=== PATIENT | female | born 1995 | race American Indian/Alaskan Native ===

== ENCOUNTER 2017-07-29 08:07 | Outpatient (CLI) | payer MEDICAID ==
[2017-07-29 09:00] LABS: Bacteria,Urine 3+ /HPF (Negative); Bilirubin,Urine NEG (Negative); Blood,Urine NEG (Negative); Ketones,Urine TR mg/dL (Negative); Leukocyte Esterase,Urine NEG (Negative); Mucus,Urine FEW /HPF; Nitrite,Urine NEG (Negative); Protein,Urine <15 mg/dL mg/dL (Negative); Urobilinogen,Urine < 2.0 mg/dL (<2.0)
[2017-07-29 09:22] VITALS: BP 108/67
== END 2017-07-29 09:40 | disposition home or self-care (01) ==
LOC: TRG 08:07
PROVIDERS: ATTEND Obstetrics & Gynecology
DX: O47.1 False labor at or after 37 completed weeks of gestation (principal); Z3A.37 37 weeks gestation of pregnancy
CPT/HCPCS: 59025; 81001

== ENCOUNTER 2017-08-26 20:05 | Inpatient (IN) | payer MEDICAID ==
[2017-08-26] MEDS ORDERED: LACTATED RINGERS 1,000 ML ONE (21:06)
[2017-08-26] MEDS ORDERED: AMBIEN PO PRN (21:35)
[2017-08-26 21:43] LABS: Hematocrit 33.7 % (30.3-42.9); Mean Corpuscular HGB Conc 33 % (30-34); Mean Corpuscular Hemoglobin 29 pg (28-32); Mean Corpuscular Volume 88 fl (79-97); Platelet Count 253 K/mm3 (140-440); Red Blood Count 3.82 M/mm3 (3.65-5.03); Red Cell Distribution Width 14.3 % (13.2-15.2); White Blood Count 16.5 K/mm3 (4.5-11.0)
[2017-08-26] MEDS: CYTOTEC VG SCH (22:03)
[2017-08-26] MEDS: LACTATED RINGERS 1,000 ML IV SCH (23:44)
[2017-08-27] MEDS: CYTOTEC VG SCH (03:03)
[2017-08-27] MEDS: LACTATED RINGERS 1,000 ML IV SCH (05:31)
[2017-08-27] MEDS: STADOL IV PRN ×2 (06:21→12:49)
[2017-08-27] MEDS ORDERED: ePHEDrine SULFATE IV PRN (07:30)
[2017-08-27] MEDS ORDERED: NARCAN 0.4 MG/1 ML IV PRN (08:00)
[2017-08-27] MEDS ORDERED: LACTATED RINGERS 1,000 ML IV SCH (08:00)
[2017-08-27] MEDS ORDERED: MINERAL OIL PO PRN (08:00)
[2017-08-27] MEDS ORDERED: PITOCin/NS 30 UNIT/500ML 30 UNITS/500 ML BAG IV SCH (08:00)
[2017-08-27] MEDS ORDERED: XYLOCAINE 2% INFILTRATI NR (08:00)
[2017-08-27] MEDS ORDERED: BRETHINE SUB-Q PRN (08:00)
[2017-08-27] MEDS ORDERED: ZOFRAN IV PRN ×2 (08:00→23:25)
[2017-08-27] MEDS ORDERED: BRETHINE IVP PRN (08:00)
--- NOTE | 2017-08-27 09:15 | History and Physical Report ---
History of Present Illness Date of examination: 08/27/17 Date of admission: 08/26/17 20:05 Chief complaint: induction of labor History of present illness: Pt is a 22 year old -[place] female HELADIO 08/18/17 at 41w2d who presented last night for induction of labor secondary to post dates. She has received 2 doses of cytotec since admission. She denies vaginal bleeding and leakage of fluid. She has had care at [facility] since 7 wks complicate by right breast lump s/p breast specialist referral and request for 6 month follow up. She is GBS negative. Past History Past Medical History: no pertinent history Past Surgical History: no surgical history Family/Genetic History: diabetes, hypertension Social history: no significant social history - Obstetrical History Expected Date of Delivery: 08/18/17 Actual Gestation: 41 Week(s) 2 Day(s) : 3 Para: 0 Hx # Term Pregnancies: 0 Number of Pregnancies: 0 Spontaneous Abortions: 2 Induced : 0 Number of Living Children: 0 Medications and Allergies Allergies Allergy/AdvReac Type Severity Reaction Status Date / Time No Known Allergies Allergy Verified 09/24/13 04:23 Home Medications Medication Instructions Recorded Confirmed Last Taken Type Docusate Sodium [Colace] 100 mg PO BID #20 capsule 02/08/14 08/27/17 1 Day Ago Rx ~07/28/17 1 Vit,Calc76/Iron/Folic 1 each PO Q24HR 07/29/17 08/27/17 1 Day Ago History [Pnv 29-1 Tablet] ~07/28/17 Active Meds: Active Medications Butorphanol Tartrate (Stadol) 2 mg IV Q2H PRN PRN Reason: Labor Pain Last Admin: 08/27/17 06:21 Dose: 2 mg Ephedrine Sulfate (Ephedrine Sulfate) 10 mg IV Q2M PRN PRN Reason: Hypotension Fentanyl (Sublimaze) 100 mcg IV Q2H PRN PRN Reason: Labor Pain Lactated Ringer's (Lactated Ringers) 1,000 mls @ 125 mls/hr IV DIRECT FAROOQ Oxytocin/Sodium Chloride (Pitocin/Ns 20 Unit/1000ml Drip) 20 units in 1,000 mls @ 125 mls/hr IV DIRECT FAROOQ Oxytocin/Sodium Chloride (Pitocin/Ns 30 Unit/500ml) 30 units in 500 mls @ 4 mls /hr IV TITR FAROOQ PRN Reason: Protocol Lidocaine (Xylocaine 2%) 20 ml INFILTRATI ONCE NR Stop: 08/27/17 15:00 Mineral Oil (Mineral Oil) 30 ml PO QHS PRN PRN Reason: Constipation Misoprostol (Cytotec) 25 mcg VG Q4H FAROOQ Last Admin: 08/27/17 03:03 Dose: 25 mcg Naloxone HCl (Narcan 0.4 Mg/1 Ml) 0.1 mg IV Q2MIN PRN PRN Reason: Res Rate </= 8 or 02 SAT < 92% Ondansetron HCl (Zofran) 4 mg IV Q8H PRN PRN Reason: Nausea And Vomiting Terbutaline Sulfate (Brethine) 0.25 mg SUB-Q ONCE PRN PRN Reason: Hyperstimulation/Hypertonicity Stop: 08/28/17 07:59 Terbutaline Sulfate (Brethine) 0.25 mg IVP ONCE PRN PRN Reason: Hyperstimulation/Hypertonicity Stop: 08/28/17 10:00 Zolpidem Tartrate (Ambien) 10 mg PO QHS PRN PRN Reason: Insomnia Last Admin: 08/26/17 23:17 Dose: 10 mg Review of Systems All systems: negative - Vital Signs Vital signs: Vital Signs Pulse BP 89 138/78 08/26/17 20:19 08/26/17 20:19 Temp Pulse Resp BP Pulse Ox 97.7 F 76 18 131/74 100 08/27/17 07:16 08/27/17 09:08 08/27/17 07:16 08/27/17 09:08 08/27/17 09:08 - Physical Exam Breasts: Positive: deferred Cardiovascular: Regular rate Lungs: Positive: Clear to auscultation Abdomen: Positive: soft (obese, gravid ) Uterus: Positive: enlarged (gravid ) Extremities: Positive: normal - Obstetrical FHR: category 2 Uterine Contraction Monitor Mode: External Cervical Dilatation: 1 Cervical Effacement Percentage: 60 station: -3 Uterine Contraction Pattern: Irregular Uterine Tone Measurement Phase: Resting Uterine Contraction Intensity: Mild Results Result Diagrams: 08/26/17 21:00 Abnormal lab results 08/26/17 Range/Units 21:00 WBC 16.5 H (4.5-11.0) K/mm3 All other labs normal. Assessment and Plan A: IUP at 41w2d Obesity Undergoing induction of labor s/p 2 doses of cytotec P: Admit to labor and delivery. Routine intrapartum care. Closely monitor maternal and status.
[2017-08-27] MEDS: SUBLIMAZE IV PRN ×2 (11:03→15:26)
[2017-08-27] MEDS ORDERED: NARCAN 2 MG/2 ML IV PRN (17:05)
--- NOTE | 2017-08-27 17:06 | Anesthesia Consultation ---
Anesthesia Consult and Med Hx Date of service: 08/27/17 - Airway Anesthetic Teeth Evaluation: Good ROM Head & Neck: Adequate Mental/Hyoid Distance: Adequate Intubation Access Assessment: Probably Good - Pre-Operative Health Status ASA Pre-Surgery Classification: ASA2, Emergency Proposed Anesthetic Plan: Epidural, Spinal - Pulmonary Hx Asthma: No COPD: No Hx Pneumonia: No - Cardiovascular System Hx Hypertension: No - Central Nervous System Hx Seizures: No Hx Psychiatric Problems: No - Endocrine Hx Renal Disease: No Hx End Stage Renal Disease: No Hx Hypothyroidism: No Hx Hyperthyroidism: No - Hematic Hx Anemia: No Hx Sickle Cell Disease: No - Other Systems Hx Alcohol Use: No
[2017-08-27] MEDS ORDERED: fentaNYL-BUPIV 2 MCG/ML-0.125% 200 MCG/100 ML BAG EPIDURAL SCH (18:00)
[2017-08-27] MEDS: PITOCin/NS 20 UNIT/1000ML DRIP 20 UNITS/1,000 ML BAG IV SCH ×2 (20:35→22:40)
--- NOTE | 2017-08-27 21:01 | Procedure Note ---
OB Delivery Note - Delivery Date of Delivery: 08/27/17 Surgeon: JORDAN SARMIENTO Estimated blood loss: 200cc - Vaginal Delivery presentation: vertex Delivery position: OA Intrapartum events: meconium Delivery induction: oxytocin Delivery monitor: external FHT, external uterine Route of delivery: Delivery placenta: spontaneous Delivery cord: 3 umbilical vessels Episiotomy: none Delivery laceration: 2nd degree Delivery repair: vicryl Anesthesia: epidural Delivery comments: Viable male delivered over intact perineum with particulate meconium weight 7 pounds 9 ounces Apgars 8,9. Cord clamped and cut and infant handed to waiting NICU staff. Placenta delivered spontaneously and intact with 3vc. 2nd laceration repaired with 2.0 vicryl. Excellent hemostasis. Patient tolerated procedure well. - A at 1 minute: 8 at 5 minutes: 9 Infant Gender: Male
[2017-08-27] MEDS ORDERED: PHENERGAN PO PRN (23:25)
[2017-08-27] MEDS ORDERED: BENADRYL PO PRN (23:25)
[2017-08-27] MEDS ORDERED: TUCKS PAD TP PRN (23:25)
[2017-08-27] MEDS ORDERED: DULCOLAX PR PRN (23:25)
[2017-08-27] MEDS ORDERED: PHENERGAN PR PRN (23:25)
[2017-08-27] MEDS ORDERED: TYLENOL PO PRN (23:25)
[2017-08-27] MEDS ORDERED: MILK OF MAGNESIA PO PRN (23:25)
[2017-08-27] MEDS ORDERED: SODIUM CHLORIDE FLUSH SYRINGE 10 ML IV NR (23:25)
[2017-08-27] MEDS ORDERED: NORCO 5/325 PO PRN (23:25)
[2017-08-28] MEDS: COLACE PO SCH ×3 (00:02→23:00)
[2017-08-28] MEDS: MOTRIN PO SCH ×4 (00:03→18:15)
[2017-08-28] MEDS ORDERED: BOOSTRIX IM ONE (06:00)
[2017-08-28 10:50] LABS: Hematocrit 28.4 % (30.3-42.9); Hemoglobin 9.3 gm/dl (10.1-14.3)
[2017-08-28] MEDS: PRENATAL VITAMIN PO SCH (12:21)
--- NOTE | 2017-08-28 15:33 | Progress Note ---
Assessment and Plan PPD 1 s/p induction at 41 weeks with . Doing well. Plan for discharge on tomorrow Subjective - Subjective Date of service: 08/28/17 Patient reports: appetite normal, voiding normally, pain well controlled, ambulating normally : doing well Objective - Vital Signs Latest vital signs: Vital Signs Temp Pulse Resp BP BP Pulse Ox 08/28/17 08:15 98.3 F 97 H 19 112/54 08/28/17 05:08 98.3 F 90 20 106/54 99 08/27/17 22:05 102 H 131/71 99 08/27/17 22:00 106 H 99 08/27/17 21:55 106 H 99 08/27/17 21:50 98 H 98 08/27/17 21:49 95 H 113/60 08/27/17 21:45 103 H 99 08/27/17 21:40 103 H 99 08/27/17 21:35 95 H 100 08/27/17 21:34 107 H 131/69 08/27/17 21:30 104 H 100 08/27/17 21:25 104 H 99 08/27/17 21:20 114 H 129/61 99 08/27/17 21:15 108 H 100 08/27/17 21:10 118 H 97 08/27/17 21:05 119 H 99 08/27/17 21:00 120 H 100 08/27/17 20:55 106 H 100 08/27/17 20:50 105 H 118/69 99 08/27/17 20:45 107 H 99 08/27/17 20:40 101 H 99 08/27/17 20:35 131 H 99 08/27/17 20:29 141 H 135/75 08/27/17 20:13 123 H 100 08/27/17 20:08 96 H 100 08/27/17 20:03 105 H 100 08/27/17 19:58 98 H 100 08/27/17 19:53 107 H 100 08/27/17 19:48 106 H 99 08/27/17 19:43 88 100 08/27/17 19:38 89 100 08/27/17 19:33 96 H 100 08/27/17 19:28 88 100 08/27/17 19:23 100 H 100 08/27/17 19:18 80 100 08/27/17 19:15 86 130/73 11/22/17 19:13 76 100 08/27/17 19:08 91 H 100 08/27/17 19:03 90 100 08/27/17 19:01 75 123/68 08/27/17 18:58 79 100 08/27/17 18:53 77 100 08/27/17 18:48 85 100 08/27/17 18:47 76 127/70 08/27/17 18:43 81 100 08/27/17 18:38 78 100 08/27/17 18:33 89 100 08/27/17 18:31 80 130/74 08/27/17 18:28 90 100 08/27/17 18:26 98.3 F 92 H 18 132/64 100 08/27/17 18:23 73 100 08/27/17 18:18 94 H 100 08/27/17 18:15 74 132/64 08/27/17 18:13 79 100 08/27/17 18:08 85 100 08/27/17 18:03 104 H 100 08/27/17 18:01 91 H 134/63 08/27/17 17:58 75 100 08/27/17 17:53 76 100 08/27/17 17:48 99 H 100 08/27/17 17:46 111 H 131/79 08/27/17 17:43 94 H 100 08/27/17 17:38 80 100 08/27/17 17:33 85 100 08/27/17 17:32 97 H 150/72 08/27/17 17:28 80 100 08/27/17 17:23 75 100 08/27/17 17:18 80 100 08/27/17 17:14 90 151/66 08/27/17 17:13 80 100 08/27/17 17:12 73 134/60 08/27/17 17:10 75 135/66 08/27/17 17:08 95 H 139/67 100 08/27/17 17:06 74 134/68 08/27/17 17:04 80 135/67 08/27/17 17:02 93 H 140/65 08/27/17 17:01 98 H 93 08/27/17 17:00 97 H 130/62 08/27/17 16:58 101 H 137/70 08/27/17 16:57 104 H 99 08/27/17 16:56 94 H 155/66 08/27/17 16:54 106 H 143/72 08/27/17 16:52 108 H 125/69 100 08/27/17 16:50 112 H 130/67 08/27/17 16:48 92 H 117/59 08/27/17 16:47 98 H 99 08/27/17 16:46 100 H 124/62 08/27/17 16:41 114 H 148/90 08/27/17 16:39 103 H 136/76 08/27/17 16:38 104 H 100 08/27/17 16:37 98 H 125/90 78 L 08/27/17 16:33 100 H 99 Intake and Output 08/28/17 08/28/17 08/28/17 06:59 14:59 22:59 Intake Total 0 120 Output Total 1000 Balance -1000 120 Intake: Oral 0 120 Output: Urine 1000 Void 1000 Other: Total, Intake Amount 0 120 Total, Output Amount 700 # Voids Void 1 1 # Bowel Movements 0 - Exam Cardiovascular: Present: Regular rate, Normal S1, Normal S2 Lungs: Present: Clear to auscultation, Normal air movement Abdomen: Present: normal appearance, soft, normal bowel sounds Uterus: Present: normal, firm Extremities: Present: normal - Labs Labs: Abnormal lab results 08/28/17 Range/Units 09:48 Hgb 9.3 L (10.1-14.3) gm/dl Hct 28.4 L (30.3-42.9) %
[2017-08-28] MEDS ORDERED: FEOSOL PO SCH (22:00)
[2017-08-29] MEDS: MOTRIN PO SCH ×3 (01:05→12:22)
--- NOTE | 2017-08-29 05:34 | Discharge Summary ---
Providers - Providers Date of Admission: 08/26/17 20:05 Date of discharge: 08/29/17 Attending physician: JOSÉ MALONE Primary care physician: JOSÉ MALONE Hospitalization Reason for admission: induction of labor Delivery: complications: none Discharge diagnosis: IUP at term delivered baby: male Hospital course: unremarkable Condition at discharge: Good Disposition: DC-01 TO HOME OR SELFCARE Plan - Discharge Medications Prescriptions: HYDROcodone/APAP 5-325 [[place] 5/325] 1 each PO Q6HR PRN #15 tablet PRN Reason: Pain Ibuprofen [Motrin] 600 mg PO Q8H PRN #30 tablet PRN Reason: Pain - Provider Discharge Summary Activity: routine, no sex for 6 weeks, no heavy lifting 4 weeks, no strenuous exercise Diet: routine Instructions: routine Additional instructions: [] Smoking cessation referral if applicable(refer to patient education folder for contact #) [] Refer to [facility] Booklet Call your doctor immediately for: * Fever > 100.5 * Heavy vaginal bleeding ( >1 pad per hour) * Severe persistent headache * Shortness of breath * Reddened, hot, painful area to leg or breast * Drainage or odor from incision. * Keep incision clean and dry at all times and follow doctor's instructions regarding bathing/showering - Follow up plan Follow up: JOSÉ MALONE MD [Primary Care Provider] - 7 Days
[2017-08-29] MEDS: COLACE PO SCH (12:22)
[2017-08-29] MEDS: PRENATAL VITAMIN PO SCH (12:26)
[2017-08-29 14:20] VITALS: BP 126/70
== END 2017-08-29 14:00 | disposition home or self-care (01) | DRG 775 ==
LOC: LD 20:05 → OB 08-27 23:09
PROVIDERS: ADMIT Obstetrics & Gynecology; ATTEND Obstetrics & Gynecology
PROC: 10E0XZZ Delivery of Products of Conception, External Approach (ICD-10-PCS; principal; 2017-08-27)
PROC: 0KQM0ZZ Repair Perineum Muscle, Open Approach (ICD-10-PCS; 2017-08-27)
PROC: 3E033VJ Introduction of Other Hormone into Peripheral Vein, Percutaneous Approach (ICD-10-PCS; 2017-08-27)
PROC: 3E0R3BZ Introduction of Anesthetic Agent into Spinal Canal, Percutaneous Approach (ICD-10-PCS; 2017-08-27)
PROC: 00HU33Z Insertion of Infusion Device into Spinal Canal, Percutaneous Approach (ICD-10-PCS; 2017-08-27)
PROC: 3E0234Z Introduction of Serum, Toxoid and Vaccine into Muscle, Percutaneous Approach (ICD-10-PCS; 2017-08-28)
DX: O48.0 Post-term pregnancy (principal); O99.214 Obesity complicating childbirth; E66.9 Obesity, unspecified; O77.0 Labor and delivery complicated by meconium in amniotic fluid; O70.1 Second degree perineal laceration during delivery; Z37.0 Single live birth; Z3A.41 41 weeks gestation of pregnancy; Z68.32 Body mass index [BMI] 32.0-32.9, adult; Z23 Encounter for immunization
CPT/HCPCS: 36415; 59200; 85014; 85018; 85027; 86592; 86850; 86900; 86901; 90471; 90715; 99211; G0463; J0595; J2590; J3010; J7120

== ENCOUNTER 2018-07-08 11:15 | Emergency (ER) | payer SELFPAY ==
--- NOTE | 2018-07-08 11:48 | Emergency Department Report ---
ED HPI - General Chief complaint: Vaginal Bleeding Stated complaint: PREG AND BLEEDING Time Seen by Provider: 07/08/18 11:46 Source: patient Mode of arrival: Ambulatory Limitations: No Limitations - History of Present Illness Initial comments: This is a 23-year-old female nontoxic, well nourished in appearance, no acute signs of distress presents to the ED with c/o of vaginal bleeding and pelvic pain x1 day. Patient stated she woke up this morning with some vaginal bleeding followed bby pelvic cramping intermittent. Patient denies any abdominal pain. Patient denies any vaginal discharge or foul odor. Patient denies any nausea, vomiting, chest pain, shortness of breathe, fever, chills, headache, stiff neck, numbness, tingling. Patient denies any urinary symptoms. Patient denies any allergies or PMH. MD Complaint: vaginal bleeding, other (pelvic pain) -: This morning Location: pelvis Radiation: none Severity: mild Severity scale (0 -10): 3 Quality: cramping Consistency: intermittent, now resolved Improves with: none Worsens with: none Associated symptoms: vaginal bleeding. denies: nausea/vomiting, vaginal discharge, abdominal pain, dysuria, headache, vision changes, malaise, dysparuenia, rash, seizure, shortness of breath, syncope, weakness Vaginal bleeding: light :: Yes Number of weeks : 8 Pre- care: none - Related Data Home Medications Medication Instructions Recorded Confirmed Last Taken Vit,Calc76/Iron/Folic 1 each PO Q24HR 07/29/17 08/27/17 1 Day Ago [Pnv 29-1 Tablet] ~07/28/17 Previous Rx's Medication Instructions Recorded Last Taken Type Docusate Sodium [Colace] 100 mg PO BID #20 capsule 02/08/14 1 Day Ago Rx ~07/28/17 1 HYDROcodone/APAP 5-325 [[place] 1 each PO Q6HR PRN #15 tablet 08/27/17 Unknown Rx 5/325] Ibuprofen [Motrin] 600 mg PO Q8H PRN #30 tablet 08/27/17 Unknown Rx Nitrofurantoin Crawford/M-Cryst 100 mg PO Q12HR #14 capsule 07/08/18 Unknown Rx [Macrobid CAP] Allergies Allergy/AdvReac Type Severity Reaction Status Date / Time No Known Allergies Allergy Verified 09/24/13 04:23 ED Review of Systems ROS: Stated complaint: PREG AND BLEEDING Other details as noted in HPI Constitutional: denies: chills, fever Eyes: denies: eye pain, eye discharge, vision change ENT: denies: ear pain, throat pain Respiratory: denies: cough, shortness of breath, wheezing Cardiovascular: denies: chest pain, palpitations Endocrine: no symptoms reported Gastrointestinal: denies: abdominal pain, nausea, diarrhea Genitourinary: abnormal menses. denies: urgency, dysuria, discharge Musculoskeletal: denies: back pain, joint swelling, arthralgia Skin: denies: rash, lesions Neurological: denies: headache, weakness, paresthesias Psychiatric: denies: anxiety, depression Hematological/Lymphatic: denies: easy bleeding, easy bruising ED Past Medical Hx - Past Medical History Previous Medical History?: No Hx Hypertension: No Hx Congestive Heart Failure: No Hx Diabetes: No Hx Deep Vein Thrombosis: No Hx Renal Disease: No Hx Sickle Cell Disease: No Hx Seizures: No Hx Asthma: No Hx COPD: No Hx HIV: No - Surgical History Past Surgical History?: Yes Additional Surgical History: mass removed from left ear - Social History Smoking Status: Never Smoker Substance Use Type: None - Medications Home Medications: Home Medications Medication Instructions Recorded Confirmed Last Taken Type Docusate Sodium [Colace] 100 mg PO BID #20 capsule 02/08/14 08/27/17 1 Day Ago Rx ~07/28/17 1 Vit,Calc76/Iron/Folic 1 each PO Q24HR 07/29/17 08/27/17 1 Day Ago History [Pnv 29-1 Tablet] ~07/28/17 HYDROcodone/APAP 5-325 [[place] 1 each PO Q6HR PRN #15 tablet 08/27/17 Unknown Rx 5/325] Ibuprofen [Motrin] 600 mg PO Q8H PRN #30 tablet 08/27/17 Unknown Rx Nitrofurantoin Crawford/M-Cryst 100 mg PO Q12HR #14 capsule 07/08/18 Unknown Rx [Macrobid CAP] ED Physical Exam - General Limitations: No Limitations General appearance: alert, in no apparent distress - Head Head exam: Present: atraumatic, normocephalic - Eye Eye exam: Present: normal appearance Pupils: Present: normal accommodation - ENT ENT exam: Present: normal exam, mucous membranes moist - Neck Neck exam: Present: normal inspection, full ROM. Absent: tenderness, meningismus - Respiratory Respiratory exam: Present: normal lung sounds bilaterally. Absent: respiratory distress, wheezes, rales, rhonchi, stridor, chest wall tenderness, accessory muscle use, decreased breath sounds, prolonged expiratory - Cardiovascular Cardiovascular Exam: Present: regular rate, normal rhythm, normal heart sounds. Absent: bradycardia, tachycardia, irregular rhythm, systolic murmur, diastolic murmur, rubs, gallop - GI/Abdominal GI/Abdominal exam: Present: soft, normal bowel sounds. Absent: distended, tenderness, guarding, rebound, rigid, diminished bowel sounds - Expanded GI/Abdominal Exam Expanded GI/Abdominal exam: Absent: psoas sign, Rutledge's sign, Rovsing's sign, tenderness at Mcburney's Point - Rectal Rectal exam: Present: deferred - Extremities Exam Extremities exam: Present: normal inspection, full ROM, normal capillary refill. Absent: tenderness - Back Exam Back exam: Present: normal inspection, full ROM. Absent: tenderness, CVA tenderness (R), CVA tenderness (L), muscle spasm, paraspinal tenderness, vertebral tenderness, rash noted - Neurological Exam Neurological exam: Present: alert, oriented X3, normal gait - Psychiatric Psychiatric exam: Present: normal affect, normal mood - Skin Skin exam: Present: warm, dry, intact, normal color. Absent: rash ED Course Vital Signs 07/08/18 07/08/18 11:22 13:01 Temperature 98.4 F Pulse Rate 70 Respiratory 18 20 Rate Blood Pressure 121/73 O2 Sat by Pulse 100 99 Oximetry - Reevaluation(s) Reevaluation #1: 07/08/18 12:24 Patient is speaking in full sentences with no signs of distress noted. ED Medical Decision Making - Lab Data Result diagrams: 07/08/18 11:54 - Medical Decision Making This is a 23-year-old female presents with abnormal menstrual cycle and UTI. Patient is stable and was examined by me. Normal abdominal exam. US Pelvic/ Transvaginal obtained and dictated by the radiologist. Ua obtained. Quantative serum test obtained. Patient notified of the US report with no questions noted by the patient. RH factor positive. Labs within normal limits. Patient was referred to Follow-up with a HV[employer] SALES REPRESENTATIVE in 3-5 days or if symptoms worsen and continue return to emergency room as soon as possible. At time of discharge, the patient does not seem toxic or ill in appearance. No acute signs of distress noted. Patient agrees to discharge treatment plan of care. No further questions noted by the patient. Critical care attestation.: If time is entered above; I have spent that time in minutes in the direct care of this critically ill patient, excluding procedure time. ED Disposition Clinical Impression: Abnormal menses UTI (urinary tract infection) Qualifiers: Urinary tract infection type: site unspecified Hematuria presence: with hematuria Qualified Code(s): N39.0 - Urinary tract infection, site not specified ; R31.9 - Hematuria, unspecified Ovarian cyst Qualifiers: Laterality: unspecified laterality Qualified Code(s): N83.209 - Unspecified ovarian cyst, unspecified side Disposition: TO HOME OR SELFCARE Is pt being admited?: No Does the pt Need Aspirin: No Condition: Stable Instructions: Ovarian Cyst (ED), Urinary Tract Infection in Women (ED) Additional Instructions: Follow-up with a HVAC SALES REPRESENTATIVE in 3-5 days or if symptoms worsen and continue return to emergency room as soon as possible. Prescriptions: Nitrofurantoin [place]/M-Cryst [Macrobid CAP] 100 mg PO Q12HR #14 capsule Referrals: PRIMARY CARE, [Primary Care Provider] - 3-5 Days MAXIM YEBOAH MD [Staff Physician] - 3-5 Days [facility] [Provider Group] - 3-5 Days Forms: Work/School Release Form(ED)
[2018-07-08 12:19] LABS: Basophils % (Auto) 0.5 % (0.0-1.8); Eosinophils # (Auto) 0.1 K/mm3 (0.0-0.4); Eosinophils % (Auto) 1.3 % (0.0-4.3); Hematocrit 37.6 % (30.3-42.9); Hemoglobin 12.1 gm/dl (10.1-14.3); Lymphocytes # (Auto) 3.3 K/mm3 (1.2-5.4); Lymphocytes % (Auto) 35.4 % (13.4-35.0); Mean Corpuscular HGB Conc 32 % (30-34); Mean Corpuscular Hemoglobin 28 pg (28-32); Mean Corpuscular Volume 88 fl (79-97); Monocytes # (Auto) 0.7 K/mm3 (0.0-0.8); Monocytes % (Auto) 7.3 % (0.0-7.3); Platelet Count 326 K/mm3 (140-440); Red Blood Count 4.29 M/mm3 (3.65-5.03); Red Cell Distribution Width 13.4 % (13.2-15.2)
[2018-07-08 13:12] LABS: Bilirubin,Urine NEG (Negative); Blood,Urine LG (Negative); Color,Urine Yellow (Yellow); Mucus,Urine 3+ /HPF; Urobilinogen,Urine < 2.0 mg/dL (<2.0)
[2018-07-08 13:13] LABS: RBC,Urine > 182.0 /HPF (0.0-6.0)
--- NOTE | 2018-07-08 14:23 | Ultrasound Report ---
FINAL REPORT EXAM: US PELVIC COMPLETE HISTORY: vaginal bleeding with pelvic pain TECHNIQUE: Grayscale and color doppler ultrasound imaging of the pelvis was performed transabdominally and transvaginally. PRIORS: None. FINDINGS: Uterus: The uterus is homogeneous in echogenicity without focal mass. The uterus measures 7.3 x 3.8 x 4.5 centimeters. Endometrium: A small nonspecific calcification is seen along the posterior margin of the endometrium measuring 1 millimeter. The endometrium measures 4.9 millimeters. Ovaries: A dominant right ovarian follicle is seen measuring 1.7 centimeters. Echogenic ovoid lesion is seen in the left ovary measuring 9 millimeters. There may be some internal color flow in this area. Normal flow is seen to the ovaries. The right ovary measures 3.7 x 2.6 x 3.0 centimeters. The left ovary measures 3.2 x 1.9 x 1.8 centimeters. Free fluid: None. IMPRESSION: 1. Nonspecific echogenic lesion in the left ovary with possible internal color flow may represent a solid ovarian neoplasm versus a hemorrhagic cyst or endometrioma. Recommend followup pelvic ultrasound 6-10 weeks. 2. Small nonspecific calcification within the endometrium.
[2018-07-08 15:51] VITALS: BP 111/81
== END 2018-07-08 15:47 | disposition home or self-care (01) ==
LOC: ED 11:15
DX: O23.41 Unspecified infection of urinary tract in pregnancy, first trimester (principal); Z3A.01 Less than 8 weeks gestation of pregnancy
CPT/HCPCS: 36415; 76830; 76856; 81001; 84702; 85025; 86900; 86901; 99284

== ENCOUNTER 2019-03-09 15:21 | Emergency (ER) | payer OTHER ==
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
[2019-03-09] MEDS ORDERED: ZOFRAN ODT PO ONE (19:18)
[2019-03-09] MEDS ORDERED: TORADOL IM ONE (19:18)
[2019-03-09] MEDS ORDERED: NYSTATIN PO ONE (19:18)
[2019-03-09] MEDS ORDERED: PERCOCET 5/325 PO ONE (19:18)
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
[2019-03-09 20:12] VITALS: BP 115/83
== END 2019-03-09 20:10 | disposition home or self-care (01) ==
LOC: ED 15:21
DX: S02.609G Fracture of mandible, unspecified, subsequent encounter for fracture with delayed healing (principal); S02.92XG Unspecified fracture of facial bones, subsequent encounter for fracture with delayed healing; B37.0 Candidal stomatitis
CPT/HCPCS: 96372; 99282; J1885; Q0162

== ENCOUNTER 2019-04-27 20:03 | Emergency (ER) | payer SELFPAY ==
--- NOTE | 2019-04-27 20:15 | Event Note ---
ED Screening Note Date of service: 04/27/19 Time: 20:12 ED Screening Note: This is a 24 y.o. F. that presents to the ER with vaginal discharge. Patient recently completed antibiotics. This initial assessment/diagnostic orders/clinical plan/treatment(s) is/are subject to change based on patients health status, clinical progression and re- assessment by fellow clinical providers in the ED. Further treatment and workup at subsequent clinical providers discretion. Patient/guardian urged not to elope from the ED as their condition may be serious if not clinically assessed and managed. Initial orders include: Labs
[2019-04-27 20:17] VITALS: BP 115/71
[2019-04-27 21:17] LABS: HCG Qualitative,Urine Negative (Negative)
[2019-04-27 21:23] LABS: Bacteria,Urine 1+ /HPF (Negative); Bilirubin,Urine NEG (Negative); Blood,Urine SM (Negative); Color,Urine Yellow (Yellow); Mucus,Urine 3+ /HPF; Urobilinogen,Urine < 2.0 mg/dL (<2.0)
--- NOTE | 2019-04-27 22:28 | Emergency Department Report ---
ED Dysuria HPI - HPI Chief Complaint: Urogenital-Female Stated Complaint: YEAST INFECTION Time Seen by Provider: 04/27/19 20:12 Duration: 2 Days Location of Discomfort: Suprapubic Severity: Mild Symptoms: Dysuria: No, Frequency: No, Suprapubic Pain: No, Flank Pain: No, Fever: No, Hematuria: No, Abdominal Pain: No, Previous UTI's: No Other History: 24 YO WHO HAS BEEN ON ANTIBIOTICS OFTEN RECENTLY IN WITH VAGINITS. SHE IS REQUESTING DIFLUCAN. SHE STATES WHEN SHE TAKES ANTIBIOTICS SHE ALSO GETS BV. NO CONCERNED FOR STI ED Review of Systems ROS: Stated complaint: YEAST INFECTION Other details as noted in HPI Comment: All other systems reviewed and negative ED Past Medical Hx - Past Medical History Previous Medical History?: No Hx Hypertension: No Hx Congestive Heart Failure: No Hx Diabetes: No Hx Deep Vein Thrombosis: No Hx Renal Disease: No Hx Sickle Cell Disease: No Hx Seizures: No Hx Asthma: No Hx COPD: No Hx HIV: No - Surgical History Past Surgical History?: Yes Additional Surgical History: mass removed from left ear, mandible fx surgery - Family History Family history: no significant - Social History Smoking Status: Never Smoker - Medications Home Medications: Home Medications Medication Instructions Recorded Confirmed Last Taken Type Fluconazole [Diflucan TAB] 100 mg PO QDAY #3 tablet 04/27/19 Unknown Rx metroNIDAZOLE [Flagyl] 500 mg PO Q12HR #20 tab 04/27/19 Unknown Rx Dysuria Exam - Exam General: Vital signs noted. No distress. Alert and acting appropriately. Exam: Yes Moist Mucous Membranes, No CVA Tenderness, No Abdominal Tenderness, No Rigidity or Guarding Labs: Lab Results 04/27/19 Range/Units 21:05 Urine Color Yellow (Yellow) Urine Turbidity Slightly-cloudy (Clear) Urine pH 5.0 (5.0-7.0) Ur Specific [place] 1.025 (1.003-1.030) Urine Protein 30 mg/dl (Negative) mg/dL Urine Glucose (UA) Neg (Negative) mg/dL Urine Ketones Neg (Negative) mg/dL Urine Blood Sm (Negative) Urine Nitrite Neg (Negative) Ur Reducing Substances Not Reportable Urine Bilirubin Neg (Negative) Urine Ictotest Not Reportable Urine Urobilinogen < 2.0 (<2.0) mg/dL Ur Leukocyte Esterase Lg (Negative) Urine WBC (Auto) 57.0 H (0.0-6.0) /HPF Urine RBC (Auto) 11.0 (0.0-6.0) /HPF U Epithel Cells (Auto) 7.0 (0-13.0) /HPF Urine Bacteria (Auto) 1+ (Negative) /HPF Urine Mucus 3+ /HPF Urine HCG, Qual Negative (Negative) ED Course Vital Signs 04/27/19 20:15 Temperature 98.4 F Pulse Rate 79 Respiratory 18 Rate Blood Pressure 115/71 O2 Sat by Pulse 100 Oximetry ED Medical Decision Making - Medical Decision Making Lab Results 04/27/19 Range/Units 21:05 Urine Color Yellow (Yellow) Urine Turbidity Slightly-cloudy (Clear) Urine pH 5.0 (5.0-7.0) Ur Specific [place] 1.025 (1.003-1.030) Urine Protein 30 mg/dl (Negative) mg/dL Urine Glucose (UA) Neg (Negative) mg/dL Urine Ketones Neg (Negative) mg/dL Urine Blood Sm (Negative) Urine Nitrite Neg (Negative) Ur Reducing Substances Not Reportable Urine Bilirubin Neg (Negative) Urine Ictotest Not Reportable Urine Urobilinogen < 2.0 (<2.0) mg/dL Ur Leukocyte Esterase Lg (Negative) Urine WBC (Auto) 57.0 H (0.0-6.0) /HPF Urine RBC (Auto) 11.0 (0.0-6.0) /HPF U Epithel Cells (Auto) 7.0 (0-13.0) /HPF Urine Bacteria (Auto) 1+ (Negative) /HPF Urine Mucus 3+ /HPF Urine HCG, Qual Negative (Negative) Vital Signs 04/27/19 20:15 Temperature 98.4 F Pulse Rate 79 Respiratory 18 Rate Blood Pressure 115/71 O2 Sat by Pulse 100 Oximetry SEE HPI WILL DC HOME WITH FLAGYL AND DIFLUCAN PT TO FOLLOW UP WITH PCP AND OBGYN - Differential Diagnosis RO PREG; UTI; STI; VAGINITIS Critical care attestation.: If time is entered above; I have spent that time in minutes in the direct care of this critically ill patient, excluding procedure time. ED Disposition Clinical Impression: Vaginitis Disposition: DC-01 TO HOME OR SELFCARE Is pt being admited?: No Does the pt Need Aspirin: No Condition: Stable Instructions: Vaginitis (ED) Additional Instructions: FOLLOW UP WITH OBGYN Prescriptions: Fluconazole [Diflucan TAB] 100 mg PO QDAY #3 tablet metroNIDAZOLE [Flagyl] 500 mg PO Q12HR #20 tab Referrals: ALEX REEVES MD [Staff Physician] - 3-5 Days Time of Disposition: 22:27
--- NOTE | 2019-04-29 11:12 | Emergency Department Report ---
Blank Doc - Documentation Documentation: pt states she lost her prescriptions for flagyl and diflucan. reprinted her pa perwork and her prescriptions. work up completed by my colleague Vivienne Harrell NP. Did not evaluate pt.
== END 2019-04-27 23:15 | disposition home or self-care (01) ==
LOC: ED 20:03
DX: N76.0 Acute vaginitis (principal)
CPT/HCPCS: 81001; 81025; 87086

== ENCOUNTER 2021-03-26 08:17 | Outpatient (CLI) | payer OTHER ==
[2021-03-26 08:56] VITALS: BP 116/75
[2021-03-26] MEDS ORDERED: LACTATED RINGERS 1,000 ML IV ONE (09:00)
[2021-03-26 09:12] LABS: Bacteria,Urine 1+ /HPF (Negative); Bilirubin,Urine NEG (Negative); Blood,Urine NEG (Negative); Color,Urine Yellow (Yellow); Granular Casts,Urine 1 /LPF; Mucus,Urine 1+ /HPF; Protein,Urine <15 mg/dL mg/dL (Negative); Urobilinogen,Urine < 2.0 mg/dL (<2.0)
[2021-03-26 09:15] LABS: WBC,Urine < 1.0 /HPF (0.0-6.0)
== END 2021-03-26 10:07 | disposition still patient (30) ==
LOC: TRG 08:17 → APU 08:22 → TRG 10:07
PROVIDERS: ATTEND Obstetrics & Gynecology
DX: O47.03 False labor before 37 completed weeks of gestation, third trimester (principal); O26.893 Other specified pregnancy related conditions, third trimester; R06.02 Shortness of breath; Z3A.34 34 weeks gestation of pregnancy
CPT/HCPCS: 59025; 81001

== ENCOUNTER 2021-03-26 10:17 | Emergency (ER) | payer OTHER ==
--- NOTE | 2021-03-26 10:38 | Emergency Department Report ---
ED Shortness of Breath HPI - General Chief Complaint: Dyspnea/Respdistress Stated Complaint: SOB Time Seen by Provider: 03/26/21 10:32 Source: patient Mode of arrival: Wheelchair Limitations: No Limitations - History of Present Illness Initial Comments: Chief complaint: Shortness of breath HPI: Is a 26-year-old female G3, P1011 32 weeks 3 days EGA who presents with sudden onset of shortness of breath. She has heavy sensation in her chest as if she cannot breathe. This began suddenly at work today. She was evaluated in L&D prior to being transferred to emergency department. She denies fever, cough, leg pain, leg swelling. She denies vaginal bleeding or new abdominal pain. She receives obstetrical care at the [facility]. Her due date is 05/18/2021 MD Complaint: shortness of breath -: Sudden, This morning Severity: moderate Consistency: constant Improves With: nothing Worsens With: nothing Associated Symptoms: denies other symptoms - Related Data Previous Rx's Medication Instructions Recorded Last Taken Type Fluconazole [Diflucan TAB] 100 mg PO QDAY #3 tablet 04/27/19 Unknown Rx metroNIDAZOLE [Flagyl] 500 mg PO Q12HR #20 tab 04/27/19 Unknown Rx Allergies Allergy/AdvReac Type Severity Reaction Status Date / Time No Known Allergies Allergy Verified 03/09/19 15:29 ED Review of Systems ROS: Stated complaint: SOB Other details as noted in HPI Comment: All other systems reviewed and negative Constitutional: denies: fever, malaise Respiratory: shortness of breath. denies: cough Cardiovascular: denies: chest pain Gastrointestinal: denies: abdominal pain, nausea ED Past Medical Hx - Past Medical History Previous Medical History?: No Hx Hypertension: No Hx Congestive Heart Failure: No Hx Diabetes: No Hx Deep Vein Thrombosis: No Hx Renal Disease: No Hx Sickle Cell Disease: No Hx Seizures: No Hx Asthma: No Hx COPD: No Hx HIV: No - Surgical History Past Surgical History?: Yes Additional Surgical History: mass removed from left ear, mandible fx surgery - Social History Smoking Status: Never Smoker Substance Use Type: None - Medications Home Medications: Home Medications Medication Instructions Recorded Confirmed Last Taken Type Fluconazole [Diflucan TAB] 100 mg PO QDAY #3 tablet 04/27/19 Unknown Rx metroNIDAZOLE [Flagyl] 500 mg PO Q12HR #20 tab 04/27/19 Unknown Rx ED Physical Exam - General Limitations: No Limitations General appearance: alert, in no apparent distress - Head Head exam: Present: atraumatic, normocephalic - Eye Eye exam: Present: normal appearance - ENT ENT exam: Present: mucous membranes moist - Neck Neck exam: Present: normal inspection, full ROM - Respiratory Respiratory exam: Present: normal lung sounds bilaterally. Absent: respiratory distress, wheezes, rales, rhonchi - Cardiovascular Cardiovascular Exam: Present: regular rate, normal rhythm, normal heart sounds. Absent: systolic murmur, diastolic murmur, rubs, gallop - GI/Abdominal GI/Abdominal exam: Present: soft, distended (gravid), normal bowel sounds. Absent: tenderness, guarding, rebound - Extremities Exam Extremities exam: Present: normal inspection. Absent: pedal edema - Neurological Exam Neurological exam: Present: alert, oriented X3 - Psychiatric Psychiatric exam: Present: normal affect, normal mood - Skin Skin exam: Present: warm, dry, intact, normal color. Absent: rash ED Course Vital Signs 03/26/21 03/26/21 03/26/21 10:34 11:12 11:17 Temperature 98 F Pulse Rate 78 70 Respiratory 22 Rate Blood Pressure 118/59 103/60 O2 Sat by Pulse 100 99 100 Oximetry 03/26/21 03/26/21 11:31 11:45 Temperature Pulse Rate 78 76 Respiratory Rate Blood Pressure 107/65 107/65 O2 Sat by Pulse 99 99 Oximetry ED Medical Decision Making - Lab Data Result diagrams: 03/26/21 11:02 03/26/21 11:02 - Radiology Data Radiology results: report reviewed Patient Name: LOLIS VASQUES Gender: Female Date of : 1995 Referring Provider: KIRSTY ABERNATHY Organization: [facility] Accession Number: [id number] Requested Date: March 26, 2021 10:33 Report Status: Final Requested Procedure: 1 Procedure Description: XR chest 1V ap Modality: XR Findings Reporting MD: Fritz Caballero Dictation Time: March 26, 2021 10:11 Parcel Carrier: Not available Hearing Therapy Director Date: CHEST 1 VIEW INDICATION: dyspnea. COMPARISON: None FINDINGS: Support devices: None. Heart: Within normal limits. Lungs/Pleura: No acute air space or interstitial disease. Additional findings: None. IMPRESSION: No acute findings. Signer Name: Fritz Caballero Jr, MD Signed: 03/26/2021 10:11 AM Workstation Name: [id number] Patient Name: LOLIS VASQUES Gender: Female Date of : 1995 Referring Provider: KIRSTY ABERNATHY Organization: [facility] Accession Number: [id number] Requested Date: March 26, 2021 : Report Status: Final Requested Procedure: 1 Procedure Description: NM perfusion only lung scan Modality: NM Findings Reporting MD: Mahesh Hui Dictation Time: March 26, 2021 11:31 Parcel Carrier: Not available Hearing Therapy Director Date: NUCLEAR MEDICINE PERFUSION LUNG SCAN INDICATION / CLINICAL INFORMATION: 32 weeks with shortness of breath. TECHNIQUE: 2.5 mCi of Tc-99m MAA were given by IV. COMPARISON: Chest radiograph dated today. FINDINGS: PERFUSION: No significant perfusion defects. ADDITIONAL FINDINGS: None. IMPRESSION: 1. Low probability for pulmonary embolism. Signer Name: Mahesh Hui MD Signed: 03/26/2021 11:31 AM Workstation Name: [id number] - Medical Decision Making This is a 26-year-old female who is currently 32 weeks 3 days who presents with shortness of breath. Perfusion scan low probability for pulmonary embolism. Chest radiograph negative for infection or pulmonary edema. Feel that patient is appropriate for discharge. Effectively ruling out pneumonia, p ulmonary embolism, pulmonary edema. She is discharged home with reassurance and return precautions. CBC chemistry unremarkable. Vital signs have been stable Vital Signs - 24 hr 03/26/21 03/26/21 03/26/21 10:34 11:12 11:17 Temperature 98 F Pulse Rate 78 70 Respiratory 22 Rate Blood Pressure 118/59 103/60 O2 Sat by Pulse 100 99 100 Oximetry 03/26/21 03/26/21 11:31 11:45 Temperature Pulse Rate 78 76 Respiratory Rate Blood Pressure 107/65 107/65 O2 Sat by Pulse 99 99 Oximetry Critical care attestation.: If time is entered above; I have spent that time in minutes in the direct care of this critically ill patient, excluding procedure time. ED Disposition Clinical Impression: Shortness of breath due to in third trimester Disposition: DC-01 TO HOME OR SELFCARE Is pt being admited?: No Does the pt Need Aspirin: No Condition: Stable Instructions: Shortness of Breath, Adult, [id number] Referrals: PRIMARY CARE, [Primary Care Provider] - 3-5 Days
--- NOTE | 2021-03-26 11:16 | XRay Report ---
CHEST 1 VIEW INDICATION: dyspnea. COMPARISON: None FINDINGS: Support devices: None. Heart: Within normal limits. Lungs/Pleura: No acute air space or interstitial disease. Additional findings: None. IMPRESSION: No acute findings. Signer Name: Fritz Caballero Jr, MD Signed: 03/26/2021 11:11 AM Workstation Name: [id number]
[2021-03-26 11:31] LABS: Basophils % (Auto) 0.3 % (0.0-1.8); Eosinophils # (Auto) 0.1 K/mm3 (0.0-0.4); Eosinophils % (Auto) 0.5 % (0.0-4.3); Hematocrit 30.4 % (30.3-42.9); Hemoglobin 9.8 gm/dl (10.1-14.3); Lymphocytes # (Auto) 2.8 K/mm3 (1.2-5.4); Lymphocytes % (Auto) 17.7 % (13.4-35.0); Mean Corpuscular HGB Conc 32 % (30-34); Mean Corpuscular Volume 91 fl (79-97); Monocytes # (Auto) 1.4 K/mm3 (0.0-0.8); Monocytes % (Auto) 8.7 % (0.0-7.3); Platelet Count 267 K/mm3 (140-440); Red Blood Count 3.36 M/mm3 (3.65-5.03)
[2021-03-26 11:55] LABS: Blood Urea Nitrogen 4 mg/dL (7-17); Calcium 9.2 mg/dL (8.4-10.2); Hemolysis Index 0
[2021-03-26 11:59] LABS: BUN/Creatinine Ratio 8
--- NOTE | 2021-03-26 12:35 | Nuclear Medicine Report ---
NUCLEAR MEDICINE PERFUSION LUNG SCAN INDICATION / CLINICAL INFORMATION: 32 weeks with shortness of breath. TECHNIQUE: 2.5 mCi of Tc-99m MAA were given by IV. COMPARISON: Chest radiograph dated today. FINDINGS: PERFUSION: No significant perfusion defects. ADDITIONAL FINDINGS: None. IMPRESSION: 1. Low probability for pulmonary embolism. Signer Name: Mahesh Hui MD Signed: 03/26/2021 12:31 PM Workstation Name: [id number]
[2021-03-26 13:10] VITALS: BP 105/61
== END 2021-03-26 13:13 | disposition home or self-care (01) ==
LOC: ED 10:17
DX: O26.893 Other specified pregnancy related conditions, third trimester (principal); R06.02 Shortness of breath; Z3A.32 32 weeks gestation of pregnancy; Z98.890 Other specified postprocedural states; Z79.899 Other long term (current) drug therapy
CPT/HCPCS: 36415; 71045; 78580; 80048; 83880; 85025; 99284; A9540

== ENCOUNTER 2021-05-13 12:23 | Outpatient (CLI) | payer OTHER ==
[2021-05-13 13:03] VITALS: BP 111/68
[2021-05-13 14:52] LABS: Bilirubin,Urine NEG (Negative); Blood,Urine NEG (Negative); Color,Urine Yellow (Yellow); Hyaline Casts,Urine 1 /LPF; Mucus,Urine 1+ /HPF; Protein,Urine <15 mg/dL mg/dL (Negative); Urobilinogen,Urine < 2.0 mg/dL (<2.0)
== END 2021-05-13 16:00 | disposition home or self-care (01) ==
LOC: TRG 12:23 → APU 12:24 → TRG 16:00
PROVIDERS: ATTEND Obstetrics & Gynecology
DX: Z34.93 Encounter for supervision of normal pregnancy, unspecified, third trimester (principal); Z3A.39 39 weeks gestation of pregnancy
CPT/HCPCS: 59025; 81001

== ENCOUNTER 2021-05-16 05:52 | Outpatient (CLI) | payer OTHER ==
[2021-05-16 08:54] VITALS: BP 118/70
[2021-05-16] MEDS ORDERED: oxyCODONE /ACETAMINOPHEN 5-325MG TAB PO SCH (09:30)
== END 2021-05-16 09:38 | disposition home or self-care (01) ==
LOC: TRG 05:52 → APU 05:53 → TRG 09:38
PROVIDERS: ATTEND Obstetrics & Gynecology
DX: Z34.93 Encounter for supervision of normal pregnancy, unspecified, third trimester (principal); Z3A.39 39 weeks gestation of pregnancy
CPT/HCPCS: 59025

== ENCOUNTER 2021-05-16 17:14 | Outpatient (CLI) | payer OTHER ==
[2021-05-16 19:36] VITALS: BP 121/76
== END 2021-05-16 20:12 | disposition home or self-care (01) ==
LOC: TRG 17:14 → APU 17:16 → TRG 20:12
PROVIDERS: ATTEND Obstetrics & Gynecology
DX: O47.1 False labor at or after 37 completed weeks of gestation (principal); Z3A.39 39 weeks gestation of pregnancy
CPT/HCPCS: 59025; Q0177

== ENCOUNTER 2021-05-17 03:08 | Inpatient (IN) | payer OTHER ==
[2021-05-17] MEDS ORDERED: LACTATED RINGERS 1,000 ML ONE (03:19)
[2021-05-17] MEDS ORDERED: OXYTOCIN DRIP 30,000 MILLIUNITS/500 ML BAG IV ONE (03:19)
[2021-05-17] MEDS ORDERED: fentaNYL 100 MCG/2 ML INJ ONE (04:27)
[2021-05-17] MEDS ORDERED: LIDOCAINE (2%) 20 MG/1 ML VIAL 20 ML MDV INFILTRATI ONE ×2 (04:31→05:14)
[2021-05-17 05:03] LABS: Hematocrit 35.5 % (30.3-42.9); Hemoglobin 11.3 gm/dl (10.1-14.3); Mean Corpuscular HGB Conc 32 % (30-34); Mean Corpuscular Volume 91 fl (79-97); Platelet Count 314 K/mm3 (140-440); Red Cell Distribution Width 13.9 % (13.2-15.2)
--- NOTE | 2021-05-17 05:03 | History and Physical Report ---
History of Present Illness Date of examination: 05/17/21 Date of admission: 05/17/21 03:08 Chief complaint: I delivered at home History of present illness: Pt is a 26 year old -Algerian female HELADIO 05/17/21 at 40w0d who presents after delivering at home at 0135 am. She presented via EMS after 3 am. She had been evaluated in triage twice yesterday with contractions every 10 minutes, and no cervical exchange mechanic 2 hours of observation each time. She r eports that when she went home she took a warm bath and went to sleep, then woke up with the urge to push and delivered in two pushes. She has had care at [facility] since 8 wks that has been uncomplicated. She is GBS negative. 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 history ) Family/Genetic History: diabetes, hypertension Social history: no significant social history - Obstetrical History Expected Date of Delivery: 05/17/21 Actual Gestation: 40 Week(s) 0 Day(s) : 4 Para: 1 Hx # Term Pregnancies: 1 Number of Pregnancies: 0 Spontaneous Abortions: 2 Induced : 0 Number of Living Children: 1 Medications and Allergies Allergies Allergy/AdvReac Type Severity Reaction Status Date / Time No Known Allergies Allergy Verified 03/09/19 15:29 Home Medications Medication Instructions Recorded Confirmed Last Taken Type Fluconazole [Diflucan TAB] 100 mg PO QDAY #3 tablet 04/27/19 Unknown Rx metroNIDAZOLE [Flagyl] 500 mg PO Q12HR #20 tab 04/27/19 Unknown Rx Review of Systems All systems: negative - Vital Signs Vital signs: Vital Signs Pulse Pulse Ox 79 100 05/17/21 03:14 05/17/21 03:14 Temp Pulse Resp BP Pulse Ox 98.2 F 71 18 120/70 100 05/17/21 04:43 05/17/21 04:54 05/17/21 04:43 05/17/21 04:43 05/17/21 04:54 - Physical Exam Breasts: Positive: deferred Abdomen: Positive: soft (gravid ) Uterus: Positive: enlarged (gravid ) Results All other labs normal. Assessment and Plan A: IUP at 40w0d s/p at home GBS negative P: Admit to labor and delivery Routine care
--- NOTE | 2021-05-17 05:12 | Procedure Note ---
OB Delivery Note - Delivery Date of Delivery: 05/17/21 Surgeon: ANT JAMES Estimated blood loss: 300cc - Vaginal Delivery presentation: vertex Intrapartum events: precipitous labor- <3hr Delivery induction: none Delivery monitor: none Route of delivery: Delivery placenta: spontaneous Delivery cord: 3 umbilical vessels Episiotomy: none Delivery laceration: 2nd degree Delivery repair: vicryl Anesthesia: local (for repair only ), intravenous (for repair only ) Delivery comments: Upon entry to the room, the was being evaluated by NICU staff, and the placenta was in situ. Placenta delivered spontaneously. Vagina and perineum explored. Second degree perineal laceration repaired with 2-0 Vicryl in a standard fashion. Hemostasis noted. - Infant A Gender: Female (3440g (7lb 9oz) @ 0135 am)
[2021-05-17] MEDS ORDERED: CARBOPROST TROMETHAMINE 250 MCG/1 ML INJ IM PRN (05:14)
[2021-05-17] MEDS ORDERED: BUTORPHANOL 2 MG/1 ML INJ IV PRN (05:14)
[2021-05-17] MEDS ORDERED: LOPERAMIDE 2 MG CAP PO PRN (05:14)
[2021-05-17] MEDS ORDERED: ePHEDrine SULFATE 50 MG/1 ML INJ IV PRN (05:14)
[2021-05-17] MEDS ORDERED: ACETAMINOPHEN 325 MG TAB PO PRN (05:14)
[2021-05-17] MEDS ORDERED: miSOPROStol 200 MCG TAB PR PRN (05:14)
[2021-05-17] MEDS ORDERED: fentaNYL 100 MCG/2 ML INJ IV PRN (05:14)
[2021-05-17] MEDS ORDERED: MINERAL OIL 30 ML ORAL LIQD PO PRN (05:14)
[2021-05-17] MEDS ORDERED: METHYLERGONOVINE MALEATE 0.2 MG/ML VIAL IM PRN (05:14)
[2021-05-17] MEDS ORDERED: TERBUTALINE 1 MG/1 ML INJ SUB-Q PRN (05:14)
[2021-05-17] MEDS ORDERED: OXYTOCIN 10 UNIT/1 ML INJ IM PRN (05:14)
[2021-05-17] MEDS ORDERED: LACTATED RINGERS 1,000 ML IV SCH (05:15)
[2021-05-17] MEDS ORDERED: OXYTOCIN DRIP 30 UNITS/500 ML BAG IV SCH ×2 (06:00)
[2021-05-17] MEDS ORDERED: WITCH HAZEL/ GLYCERIN PAD TP PRN (06:12)
[2021-05-17] MEDS ORDERED: HYDROcodone/ACETAMINOPHEN 5-325 MG TAB PO PRN (06:12)
[2021-05-17] MEDS ORDERED: diphenhydrAMINE 25 MG CAP PO PRN (06:12)
[2021-05-17] MEDS ORDERED: PROMETHAZINE 25 MG RECT SUPP PR PRN (06:12)
[2021-05-17] MEDS ORDERED: BENZOCAINE/MENTHOL 20/0.5% TOP SPRAY 56 GM TP PRN (06:12)
[2021-05-17] MEDS ORDERED: ONDANSETRON 4 MG/2 ML INJ IV PRN (06:12)
[2021-05-17] MEDS ORDERED: LANOLIN/ZINC/DIMETHICONE (LANSINOH) 7 GM TP PRN ×2 (06:12)
[2021-05-17] MEDS ORDERED: PROMETHAZINE 25 MG TAB PO PRN (06:12)
[2021-05-17] MEDS ORDERED: MAGNESIUM HYDROXIDE (MOM) ORAL LIQD UDC PO PRN (06:12)
[2021-05-17] MEDS: IBUPROFEN 600 MG TAB PO SCH ×4 (07:10→23:32)
[2021-05-17 09:51] LABS: Hematocrit 28.5 % (30.3-42.9); Hemoglobin 9.4 gm/dl (10.1-14.3); Mean Corpuscular HGB Conc 33 % (30-34); Mean Corpuscular Volume 88 fl (79-97); Platelet Count 300 K/mm3 (140-440); Red Blood Count 3.22 M/mm3 (3.65-5.03); Red Cell Distribution Width 13.3 % (13.2-15.2)
[2021-05-17] MEDS: DOCUSATE SODIUM 100 MG CAP PO SCH ×2 (09:56→21:31)
[2021-05-17 16:49] LABS: Hematocrit 27.6 % (30.3-42.9); Hemoglobin 9.2 gm/dl (10.1-14.3)
[2021-05-18] MEDS ORDERED: MEASLES, MUMPS & RUBELLA 12,500 UNIT/0.5 ML VACCINE SUB-Q ONE (05:18)
[2021-05-18] MEDS: IBUPROFEN 600 MG TAB PO SCH ×3 (05:50→18:33)
[2021-05-18] MEDS ORDERED: TETANUS,DIPH,PERTUSS(ACELL) VACCINE 0.5 ML SYRINGE IM ONE (06:00)
--- NOTE | 2021-05-18 08:10 | Progress Note ---
Assessment and Plan - Patient Problems (1) (normal spontaneous vaginal delivery) Current Visit: Yes Status: Acute Plan to address problem: Patient doing well Routine care Subjective - Subjective Date of service: 05/18/21 Interval history: Patient reports feeling well today. Patient reports: appetite normal, voiding normally, pain well controlled : doing well Objective - Vital Signs Latest vital signs: Vital Signs Temp Pulse Resp BP BP Pulse Ox Pulse Ox 05/18/21 05:50 20 05/18/21 00:46 98.3 F 69 18 107/64 91 05/17/21 23:32 20 05/17/21 19:45 98 05/17/21 15:50 98.3 F 101 H 20 113/72 05/17/21 12:00 98.2 F 100 H 20 123/73 Intake and Output 05/17/21 05/18/21 05/18/21 22:59 06:59 14:59 Intake Total 720 600 Output Total 1100 Balance -380 600 Intake: Oral 720 600 Output: Urine 1100 Void 1100 Other: Total, Intake Amount 240 120 Total, Output Amount 500 # Voids Void 1 1 - Exam Abdomen: Present: normal appearance, soft - Labs Labs: Abnormal lab results 05/17/21 05/17/21 Range/Units 08:47 15:59 WBC 21.1 H (4.5-11.0) K/mm3 RBC 3.22 L (3.65-5.03) M/mm3 Hgb 9.4 L 9.2 L (10.1-14.3) gm/dl Hct 28.5 L D 27.6 L (30.3-42.9) %
--- NOTE | 2021-05-18 08:11 | Discharge Summary ---
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 Her course was uneventful. Condition at discharge: Good Disposition: HOME / SELF CARE / HOMELESS - Discharge Diagnoses (1) (normal spontaneous vaginal delivery) Status: Acute Plan - Discharge Medications Prescriptions: Ibuprofen [Motrin] 800 mg PO Q8HR PRN #30 tablet PRN Reason: Pain , Severe (7-10) HYDROcodone/APAP 5-325 [Amonate 5/325] 1 each PO Q6HR PRN #15 tablet PRN Reason: Pain - Provider Discharge Summary Activity: no sex for 6 weeks, no heavy lifting 4 weeks, no strenuous exercise Diet: routine Instructions: routine Additional instructions: [] Smoking cessation referral if applicable(refer to patient education folder for contact #) [] Refer to [facility] Booklet Call your doctor immediately for: * Fever > 100.5 * Heavy vaginal bleeding ( >1 pad per hour) * Severe persistent headache * Shortness of breath * Reddened, hot, painful area to leg or breast * Schedule visit in 4 weeks - Follow up plan
[2021-05-18] MEDS: DOCUSATE SODIUM 100 MG CAP PO SCH (09:56)
[2021-05-19] MEDS: IBUPROFEN 600 MG TAB PO SCH ×2 (00:06→05:34)
[2021-05-19] MEDS: DOCUSATE SODIUM 100 MG CAP PO SCH (00:06)
[2021-05-19 13:08] VITALS: BP 111/54
== END 2021-05-19 13:45 | disposition home or self-care (01) | DRG 807 ==
LOC: LD 03:08 → OB 06:13
PROVIDERS: ADMIT Obstetrics & Gynecology; ATTEND Obstetrics & Gynecology
PROC: 10E0XZZ Delivery of Products of Conception, External Approach (ICD-10-PCS; principal; 2021-05-17)
PROC: 0KQM0ZZ Repair Perineum Muscle, Open Approach (ICD-10-PCS; 2021-05-17)
DX: O62.3 Precipitate labor (principal); Z37.0 Single live birth; O70.1 Second degree perineal laceration during delivery; Z3A.40 40 weeks gestation of pregnancy; Z20.822 Contact with and (suspected) exposure to COVID-19; Z82.49 Family history of ischemic heart disease and other diseases of the circulatory system; Z83.3 Family history of diabetes mellitus
CPT/HCPCS: 36415; 85014; 85018; 85027; 86592; 86850; 86900; 86901; 99211; G0378; G0463; J3010; U0003